=== PATIENT | female | born 1995 | race Caucasian/White ===

== ENCOUNTER → 2023-06-07 02:12 | Outpatient (CLI) | payer MEDICAID, SELFPAY ==
--- NOTE | 2023-06-07 | DI.US_ITS ---
Exam(s) US OB 2-3 TRIMESTER EXAM: US OB 2-3 TRIMESTER CLINICAL HISTORY: ? DATES. TECHNIQUE: Transabdominal obstetrical ultrasound was performed. COMPARISON: No exams were available for comparison FINDINGS: There is a single viable intrauterine gestation with cardiac activity identified-132 bpm. Amniotic fluid: There is a normal amount of amniotic fluid. Placental location: The placenta is anterior grade 0,with no evidence of placenta previa.Distance fro m tip of placenta to the internal cervical os is 4 cm. The distance from the cord insertion on the p lacenta to the placental margin is 4.5 cm ANATOMY: A 3 vessel umbilical cord is seen. A four-chamber cardiac view was obtained. Right and left ventricular outflow tracts were imaged. There are no obvious abnormalities of the spinal column evident. There is no obvious abnormal ity of the anterior abdominal wall. stomach and urinary bladder are identified and there is no evidence of hydronephrosis. No abnormalities of the upper lip region are identified. No evidence of choroid plexus cysts i n the brain. Dating parameters place this at approximately 21 weeks and 4 days gestational age. BPD measures 21 weeks and 2 days HC measures 21 weeks and 6 days AC measures 21 weeks and 1 day FL measures 21 weeks and 5 days Estimated weight is 425 gm-0 pounds 15 ounces Fetus is at the less than 3rd percentile on the Hadlock scale. IMPRESSION:: Single viable intrauterine gestation which is approximately 21 weeks and 4 days gestati onal age, implying an SAMMIE of 10/14/2023.. There are no obvious anomalies evident on today's study. Fetus is at the less than 3rd percenti le on the Hadlock scale The placenta is anterior with no evidence of placenta previa. There is a normal amount of amniotic fluid. DATA REPOSITORY:
== END ==
PROVIDERS: Visit Provider Midwife
DX: Z34.02 Encounter for supervision of normal first pregnancy, second trimester (principal)
CPT/HCPCS: 76805